=== PATIENT | male | born 1985 | race Caucasian/White ===

== ENCOUNTER 2019-10-08 13:18 | Emergency (ER) | payer OTHER, SELFPAY ==
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
[2019-10-08 13:45] VITALS: BP 144/90; PULSE 83; RESP 18; TEMP 36.2; O2SAT 98
[2019-10-08] MEDS: KETOROLAC (*BKC) 60 MG/2 ML VIAL IM (14:30)
[2019-10-08] MEDS: DIAZEPAM 5 MG TABLET PO (14:34)
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
[2019-10-08 15:34] VITALS: BP 148/80; PULSE 72; RESP 18; O2SAT 99
== END 2019-10-08 15:36 | disposition home or self-care (01) ==
PROVIDERS: Emergency Provider Emergency Medicine
DX: S09.90XA Unspecified injury of head, initial encounter (principal); S16.1XXA Strain of muscle, fascia and tendon at neck level, initial encounter; M47.812 Spondylosis without myelopathy or radiculopathy, cervical region; Y09 Assault by unspecified means
CPT/HCPCS: 70486; 72125; 96372; 99284; A9270; J1885

== ENCOUNTER 2020-11-15 11:50 | Emergency (ER) | payer OTHER, SELFPAY ==
[2020-11-15 12:08] VITALS: BP 147/101; PULSE 79; RESP 18; TEMP 37.1; O2SAT 98
--- NOTE | 2020-11-15 12:12 | ED.URI ---
HPI - URI/Sore Throat General Chief Complaint: Upper Respiratory Infection Stated Complaint: runny nose scratchy eyes congestion Time Seen by Provider: 11/15/20 12:12 Source: patient and family Mode of arrival: ambulatory History of Present Illness MD elicited complaint: rhinorrhea and nasal congestion Pertinent past history: seasonal allergies Onset (ago): week(s) Consistency: constant Severity: mild Description of mucous: clear and watery Able to tolerate fluids by mouth: Yes Exacerbating factors: nothing Related Data Allergies Allergy/AdvReac Type Severity Reaction Status Date / Time No Known Allergies Allergy Verified 10/08/19 13:51 Review of Systems Review of Systems: Narrative: CONSTITUTIONAL: Denies chills, or sweats. Reports fever and generalized body aches EYES: Denies visual changes, redness, or discharge. ENT: Denies otalgia. Reports nasal congestion runny nose and sore throat CARDIOVASCULAR: Denies chest pain, palpitations, or edema. RESPIRATORY: Denies dyspnea. Reports occasional cough GASTROINTESTINAL: Denies abdominal pain, nausea, vomiting, or diarrhea. GENITOURINARY: Denies dysuria or hematuria. SKIN: Denies rash or itching. MUSCULOSKELETAL: Denies back pain, joint pain, or myalgia. Reports generalized body aches NEUROLOGIC: Denies headache, numbness, or weakness. PSYCHIATRIC: Denies anxiety or depression. [facility] Social History Social History Gender identity (if verbalized by the patient): Male Comments At time of signature, agree with nursing past medical, surgical, social and family history. There is no relevant family history pertinent to the presenting complaint Exam Narrative: Exam Narrative: The patient is a well-developed, well-nourished in no acute distress. SKIN: Skin is warm and dry without erythema, swelling or exudate. There is good turgor. No tenting. HEAD: Atraumatic. Normocephalic. No temporal or scalp tenderness. EYES: Moist and bright. Sclera and conjunctivae normal. No discharge. PERRLA. Extraocular motions intact. Gross visual acuity intact. EARS: Pinna is normal shape and contour. Clear external auditory canals. TM pearly baxter with good cone of light, no erythema or suppuration. Bilateral cerumen noted no gross hearing deficit. NOSE: pink, moist mucosa with good air movement. Clear rhinorrhea without nasal flaring. Septum midline. Mouth: moist mucous membranes. THROAT; mild erythema noted to posterior oropharynx with moderate postnasal drainage. Without exudate or ulceration.. Uvula midline. Normal movement of soft palate. NECK: Supple and nontender with full range of motion without discomfort. No meningeal signs. LUNGS: Equal and bilateral breath sounds without wheezes, rales or rhonchi. CHEST: The chest wall is without retractions or use of accessory muscles. HEART: Has a regular rate and rhythm without murmur, gallops, click or rub. ABDOMEN: Soft, nontender with positive active bowel sounds. No rebound tenderness. EXTREMITIES: Without cyanosis, clubbing or edema. Equal 2+ distal pulses and 2 second capillary refill noted. NEUROLOGIC: alert, active, . The patient moves all extremities with normal muscle strength. Normal muscle tone is noted. Normal coordination is noted. NO focal neurological findings noted. Course Vital Signs Vital signs: Vital Signs Temperature 37.1 C 11/15/20 12:08 Pulse Rate 79 11/15/20 12:08 Respiratory Rate 18 11/15/20 12:08 Blood Pressure 147/101 H 11/15/20 12:08 Pulse Oximetry 98 11/15/20 12:08 Temperature 37.1 C 11/15/20 12:08 Pulse Rate 79 11/15/20 12:08 Respiratory Rate 18 11/15/20 12:08 Blood Pressure 147/101 H 11/15/20 12:08 Pulse Oximetry 98 11/15/20 12:08 Please RICARDO schedule a followup visit with your personal physician for further evaluation and treatment. Including recheck and discussion of your blood pressure. If your symptoms persist, change or worse
[2020-11-18 15:39] LABS: SARS-CoV-2 RNA PCR Negative
== END 2020-11-15 12:48 | disposition home or self-care (01) ==
PROVIDERS: Emergency Provider Nurse Practitioner Family
DX: J32.9 Chronic sinusitis, unspecified (principal); J06.9 Acute upper respiratory infection, unspecified; Z20.822 Contact with and (suspected) exposure to COVID-19
CPT/HCPCS: 87426; 99213; C9803; G0463; U0003; U0005

== ENCOUNTER 2022-07-01 21:09 | Inpatient (IN) | payer OTHER, SELFPAY ==
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
--- NOTE | ~2022-07-01 | XR_ITS ---
EXAMINATION: XR surgery orthopedic DATE: 07/02/2022 17:14 INDICATION: ORIF right humeral fracture TECHNIQUE: 5 fluoroscopic images of the right humerus were obtained during procedure performed by Dr. Parra. Radiologist was not present for the imaging or procedure. The amount of fluoroscopy time us ed during this procedure was 3.2 minutes. COMPARISON: Radiographs dated 07/01/2022 FINDINGS: Antegrade intramedullary joan fixation of the right humeral diaphyseal fracture which is been reduced to near anatomic alignment. There is approximately 1 cortical width residual displacement of a small triangular butterfly fragment. Interlocking screws are seen both proximally at the humeral neck and a t the distal diaphysis. Gas versus vacuum phenomena in the widened right glenohumeral joint space whi ch could be related to traction upon the arm. No new fractures identified. IMPRESSION: 1. Near-anatomic alignment post open reduction internal fixation of a mildly comminuted diaphyseal fr acture of the right humerus. . Reviewed, dictated and finalized at location A. TRUCTION SECRETARY IMPRESSION: 1. Near-anatomic alignment post open reduction internal fixation of a mildly co mminuted diaphyseal fracture of the right humerus. .
--- NOTE | ~2022-07-01 | XR_ITS ---
EXAMINATION: XR humerus RT DATE: 07/01/2022 23:28 INDICATION: Postreduction and splinting of a right humeral fracture TECHNIQUE: Internal and externally rotated views of the right humerus were obtained COMPARISON: 07/02/2022 at 9:35 PM FINDINGS: Improved alignment post reduction and splinting of the previous noted mildly comminuted proximal righ t humeral diaphyseal fracture. There is now one half shaft width posterior displacement and 15 degree medial angulation IMPRESSION: 1. Improved alignment post reduction and splinting of a mildly comminuted proximal right humeral diap hyseal fracture. Reviewed, dictated and finalized at location A. ICIAN INTERVENTIONAL CARDIOLOGIST IMPRESSION: 1. Improved alignment post reduction and splinting of a mildly comminuted proxi mal right humeral diaphyseal fracture.
--- NOTE | ~2022-07-01 | XR_ITS ---
EXAMINATION: XR hand LT min 3V DATE: 07/02/2022 17:30 INDICATION: Fracture TECHNIQUE: Posteroanterior, oblique and lateral views of the left hand were obtained. COMPARISON: None. FINDINGS: Likely old healed fracture of the fourth metacarpal diaphysis with shortening of the metacarpal align ment is otherwise normal. Tiny corticated ossicle near the tip the lateral malleolus which could repr esent either a chronic nonunited fracture fragment, degenerative loose body or most likely heterotopi c ossicle related to chronic soft tissue injury. No acute fracture. Joint spaces are normal. Diffuse soft tissue swelling about the left hand. IMPRESSION: 1. No acute osseous abnormality. Reviewed, dictated and finalized at location A. UNTS PAYABLE TECHNICIAN
--- NOTE | ~2022-07-01 | XR_ITS ---
EXAMINATION: XR shoulder RT min 2V, XR humerus RT DATE: 07/02/2022 18:59 INDICATION: Post reduction internal fixation of a right humeral diaphyseal fracture. TECHNIQUE: 1. AP and transscapular Y views of the right shoulder were obtained. 2. Internal and axillary rotated views of the right humerus were obtained. COMPARISON: None FINDINGS: Antegrade intramedullary joan fixation of the right humeral proximal diaphyseal fracture. Interlocking screws are seen both proximally at the humeral neck and at the distal diaphysis. The main proximal a nd distal findings are in essentially anatomic alignment. There is up to 1 cm displacement of a small triangular butterfly fragment along the lateral cortex. No new fractures identified. Normal joint sp modesto at the right shoulder and elbow. There is soft tissue swelling with subcutaneous edema about the proximal to mid right upper arm. Visualized portions of the right lung are clear.. IMPRESSION: 1. Near-anatomic alignment post open reduction and internal fixation of a mildly comminuted diaphysea l fracture of the right humerus. Reviewed, dictated and finalized at location A. ETARY IMPRESSION: 1. Near-anatomic alignment post open reduction and internal fixation of a mildl y comminuted diaphyseal fracture of the right humerus.
[2022-07-01 21:03] VITALS: BP 130/78; PULSE 80; RESP 13; TEMP 36.6; O2SAT 95
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
[2022-07-01] MEDS: HYDROmorphone HCL INJ (*CRX) 1 MG/ML SYR 0.5 MG IV PUSH (22:48)
[2022-07-01] MEDS: SODIUM CHLORIDE 0.9% IV 1,000 ML 999 ML (22:49)
[2022-07-01] MEDS: MIDAZOLAM HCL (*CRX) 2 MG/2 ML VIAL 1 MG IV PUSH (22:49)
--- NOTE | 2022-07-01 23:05 | ECG_ITS ---
Measurements Intervals [place] Rate: 83 P: 51 FL: 163 QRS: 39 QRSD: 88 T: 35 QT: 358 QTc: 421 Interpretive Statements SINUS RHYTHM NORMAL ECG NO PREVIOUS ECG AVAILABLE FOR COMPARISON Electronically Signed On 07-02-2022 6:52:31 SIGNALLING AND COMMUNICATIONS ENGINEER by Abdon Ordoñez D.O.
[2022-07-01 23:46] VITALS: BP 140/90; PULSE 90; RESP 13; O2SAT 97
[2022-07-01] MEDS: SODIUM CHLORIDE 0.9% IV 1,000 ML 999 ML IV CONT (23:50)
[2022-07-01 23:57] LABS: Basophils Absolute Auto 0.1 K/mm3 (0.0-0.1); Basophils Percent Auto 0.2 % (0.2-1.2); Eosinophils Percent Auto 0.1 % (0-4.4); Hematocrit 43.7 % (42.0-52.0); Hemoglobin 15.1 g/dL (14.0-18.0); Immature Granulocyte Absolute 0.11 K/mm3 (0.00-0.031); Immature Granulocyte Percent A 0.5 % (0-0.5); Lymphocytes Absolute Auto 1.31 K/mm3 (0.9-3.2); Lymphocytes Percent Auto 6.4 % (18.3-44.2); Mean Corpuscular HGB Conc 34.6 g/dl (32-36); Mean Corpuscular Hemoglobin 32.2 pg (26-34); Mean Corpuscular Volume 93.2 fl (80-100); Mean Platelet Volume 9.7 fl (7.4-10.4); Monocytes Percent Auto 4.9 % (2.6-8.5); Neutrophils Percent Auto 87.9 % (45.5-73.1); Platelet Count Result 329 k/mm3 (150-375); Red Blood Count 4.69 M/mm3 (4.6-6.20); Red Cell Distribution Width 12.4 % (11.5-14.5); White Blood Count 20.5 K/mm3 (4.5-10.0)
[2022-07-01 23:59] VITALS: PULSE 80
[2022-07-02] VITALS (11 sets, daily range): BP systolic 111–153; BP diastolic 60–94; PULSE 71–95; RESP 12–21; TEMP 35.9–37.4; O2SAT 93–98
[2022-07-02 00:10] LABS: INR 1.1; Prothrombin Time 13.4 Seconds (11.1-14.7)
[2022-07-02 00:11] LABS: Partial Thromboplastin Time 24.7 SECONDS (22.3-36.8)
[2022-07-02 00:22] LABS: Ethanol 46 mg/dL (<10); Lactic Acid Reflex 2.7 mmol/L (0.7-2.0)
[2022-07-02] MEDS: HYDROmorphone HCL INJ (*CRX) 1 MG/ML SYR 0.5 MG IV PUSH ×3 (01:09→11:09)
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
[2022-07-02] MEDS: KETOROLAC 30 MG/ML VIAL (*BKC) IV PUSH ×2 (01:31→21:06)
[2022-07-02] MEDS: LACTATED RINGERS 1,000 ML 125 ML IV CONT (01:32)
[2022-07-02 02:54] LABS: Reflex Lactic Acid Yes or No Add Lactic
[2022-07-02 03:50] LABS: Lactic Acid 0.7 mmol/L (0.7-2.0)
[2022-07-02 05:45] LABS: Alanine Aminotransferase 24 U/L (6-50); Albumin Level 4.5 g/dL (3.5-5.1); Alkaline Phosphatase 75 U/L (38-126); Anion Gap 10 mmol/L (8-16); Aspartate Amino Transferase 35 U/L (17-59); Bilirubin,Total 0.5 mg/dL (0.2-1.3); Blood Urea Nitrogen 8 mg/dL (9-20); Calcium 8.6 mg/dL (8.4-10.2); Carbon Dioxide 22 mmol/L (22-30); Chloride 105 mmol/L (98-107); Estimated CRCL calculation 128 ml/min; Estimated Glomerular Filt Rate > 60; Glucose 103 mg/dL (65-110); Magnesium 1.7 mg/dL (1.6-2.3); Potassium 3.8 mmol/L (3.4-5.0); Sodium 137 mmol/L (137-145)
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
--- NOTE | 2022-07-02 12:26 | WPDHPUPDATE1 ---
History and Physical Update Update Date/Time: 07/02/22 12:26 History and Physical has been reviewed, including an updated exam of the patient. There are NO changes in the patient's condition. Risks, benefits, and alternatives have been discussed and questions answered. Patient agrees to proceed with procedure.
[2022-07-02] MEDS: ACETAMINOPHEN 500 MG TABLET 1000 MG PO (13:39)
--- NOTE | 2022-07-02 13:41 | WPDANESEPPF ---
Anes - Initial Pre Proc Eval Procedure: Operation Date: 07/02/22 14:00 Proposed Procedures p Open Reduction Internal Fixation Right Humerus(Right) - Karthikeyan Parra MD Date/Time: 07/02/22 13:41 Surgeon: Karthikeyan Parra MD Pre Op Diagnosis: humerous fracture Patient Data Age: 37 Gender: M Height: 1.68 m Weight: 89.9 kg Last Vital Signs Temp 35.9 C L 07/02/22 06:00 Pulse 71 07/02/22 06:00 Resp 16 07/02/22 06:00 BP 131/86 07/02/22 06:00 Pulse Ox 96 07/02/22 06:00 O2 Del Method Room Air 07/02/22 08:12 Allergies Allergy/AdvReac Type Severity Reaction Status Date / Time No Known Allergies Allergy Verified 07/02/22 07:55 Home Medications Medication Instructions Recorded Confirmed Type No Home Medications 07/02/22 07/02/22 History Laboratory Tests 07/01/22 07/01/22 07/01/22 23:47 23:48 23:48 WBC 20.5 K/mm3 H K/mm3 (4.5-10.0) RBC 4.69 M/mm3 M/mm3 (4.6-6.20) Hgb 15.1 g/dL g/dL (14.0-18.0) Hct 43.7 % % (42.0-52.0) MCV 93.2 fl fl (80-100) MCH 32.2 pg pg (26-34) MCHC 34.6 g/dl g/dl (32-36) RDW 12.4 % % (11.5-14.5) Plt Count 329 k/mm3 k/mm3 (150-375) MPV 9.7 fl fl (7.4-10.4) Immature Gran % (Auto) 0.5 % % (0-0.5) Neut % (Auto) 87.9 % H % (45.5-73.1) Lymph % (Auto) 6.4 % L % (18.3-44.2) [place] % (Auto) 4.9 % % (2.6-8.5) Eos % (Auto) 0.1 % % (0-4.4) Baso % (Auto) 0.2 % % (0.2-1.2) Lymph # (Auto) 1.31 K/mm3 K/mm3 (0.9-3.2) [place] # (Auto) 1.0 K/mm3 H K/mm3 (0.1-0.6) Eos # (Auto) 0.0 K/mm3 K/mm3 (0-0.3) Baso # (Auto) 0.1 K/mm3 K/mm3 (0.0-0.1) Abs Immat Gran (auto) 0.11 K/mm3 H K/mm3 (0.00-0.031) Absolute Neuts (auto) 18.0 K/mm3 H K/mm3 (1.3-6.7) Absolute Nucleated RBC 0.0 K/mm3 K/mm3 (0.0-0.012) Nucleated RBC % 0.0 % % (0.0-0.2) PT INR APTT Sodium 137 mmol/L mmol/L (137-145) Potassium 3.8 mmol/L mmol/L (3.4-5.0) Chloride 105 mmol/L mmol/L (98-107) Carbon Dioxide 22 mmol/L mmol/L (22-30) Anion Gap 10 mmol/L mmol/L (8-16) BUN 8 mg/dL L mg/dL (9-20) Creatinine 0.70 mg/dL mg/dL (0.7-1.3) Estim Creat Clear Calc 128 ml/min ml/min Estimated GFR > 60 (59 - ) Glucose 103 mg/dL mg/dL (65-110) Lactic Acid Calcium 8.6 mg/dL mg/dL (8.4-10.2) Magnesium 1.7 mg/dL mg/dL (1.6-2.3) Total Bilirubin 0.5 mg/dL mg/dL (0.2-1.3) AST 35 U/L U/L (17-59) ALT 24 U/L U/L (6-50) Alkaline Phosphatase 75 U/L U/L (38-126) Total Protein 8.0 g/dL g/dL (6.3-8.2) Albumin 4.5 g/dL g/dL (3.5-5.1) Ethyl Alcohol Blood Type O Positive Antibody Screen Negative 07/01/22 07/01/22 07/01/22 23:48 23:48 23:49 WBC RBC Hgb Hct MCV MCH MCHC RDW Plt Count MPV Immature Gran % (Auto) Neut % (Auto) Lymph % (Auto) [place] % (Auto) Eos % (Auto) Baso % (Auto) Lymph # (Auto) [place] # (Auto) Eos # (Auto) Baso # (Auto) Abs Immat Gran (auto) Absolute Neuts (auto) Absolute Nucleated RBC Nucleated RBC % PT 13.4 Seconds Seconds (11.1-14.7) INR 1.1 APTT 24.7 SECONDS SECONDS (22.3-36.8) Sodium Potassium Chloride Carbon Dioxide Anion Gap BUN Creatinine Es
[2022-07-02] MEDS: HYDROmorphone HCL INJ (*CRX) 1 MG/ML SYR 2 MG IV PUSH (13:47)
[2022-07-02] MEDS: LACTATED RINGERS 1,000 ML 30 ML IV CONT (14:00)
--- NOTE | 2022-07-02 14:01 | PC.NURSE ---
Pt is A&O4 male who is going for surgery today. Pt will have ORIF today to R humerus. Pt has been anxious about the procedure. The procedure was explained by Dr. Parra and pt stated that it answered a lot of questions. Pt has a visitor at bedside. Pts visitor will accompany him to preop. Pt participated and contributed in plan of care. Pt reports having pain, dilaudid was given. Pt has no other complaints and expresses no needs at this time. Will continue to monitor pt.
--- NOTE | 2022-07-02 14:09 | PCCCNOTE ---
On 07/02/22, the student, [Lucila Silver], provided care and completed [facility] documentation on this patient. I have reviewed the student's documentation and agree with the findings.
[2022-07-02] MEDS: ceFAZolin 2 GM/D5W 50 ML 2 GM/50 ML BAG IVPB (14:19)
[2022-07-02] MEDS: BUPIVACAINE/EPINEPHRINE 0.25% 50 ML VIAL INFILTRATE (14:57)
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
[2022-07-02] MEDS: HYDROmorphone HCL INJ (*CRX) 1 MG/ML SYR IV PUSH (17:39)
[2022-07-02] MEDS: ceFAZolin 1 GM/NS 50 ML 1 GM/50 ML BAG IVPB (20:49)
[2022-07-02] MEDS: KCL 20 MEQ/D5/0.45% SOD CHL 1,000 ML 80 ML IV CONT (20:49)
[2022-07-02] MEDS: ASPIRIN 325 MG ENTERIC TABLET PO (20:50)
[2022-07-02] MEDS: ONDANSETRON INJ 4 MG/2 ML VIAL IV PUSH (21:07)
[2022-07-02] MEDS: diazePAM (*CRX) 5 MG TABLET PO (21:07)
[2022-07-03] MEDS: PROMETHAZINE HCL 25 MG/ML AMPUL 12.5 MG IV PUSH (00:26)
[2022-07-03] MEDS: MORPHINE SULFATE (*CRX) 4 MG/ML INJ 3 MG IV PUSH (00:26)
[2022-07-03 03:34] VITALS: BP 170/81; PULSE 52; RESP 16; TEMP 36.6; O2SAT 99
[2022-07-03] MEDS: ceFAZolin 1 GM/NS 50 ML 1 GM/50 ML BAG IVPB ×2 (05:43→11:15)
[2022-07-03] MEDS: oxyCODONE HCL (*CRX) 5 MG TAB IR PO ×3 (06:06→19:50)
[2022-07-03 06:29] LABS: Basophils Percent Auto 0.1 % (0.2-1.2); Eosinophils Percent Auto 0.1 % (0-4.4); Hematocrit 37.9 % (42.0-52.0); Immature Granulocyte Absolute 0.05 K/mm3 (0.00-0.031); Immature Granulocyte Percent A 0.3 % (0-0.5); Lymphocytes Absolute Auto 1.51 K/mm3 (0.9-3.2); Mean Corpuscular HGB Conc 34.3 g/dl (32-36); Mean Corpuscular Volume 96.2 fl (80-100); Mean Platelet Volume 9.8 fl (7.4-10.4); Monocytes Absolute Auto 1.1 K/mm3 (0.1-0.6); Monocytes Percent Auto 7.2 % (2.6-8.5); Neutrophils Absolute Auto 12.4 K/mm3 (1.3-6.7); Neutrophils Percent Auto 82.3 % (45.5-73.1); Platelet Count Result 253 k/mm3 (150-375); Red Blood Count 3.94 M/mm3 (4.6-6.20); Red Cell Distribution Width 12.2 % (11.5-14.5); White Blood Count 15.1 K/mm3 (4.5-10.0)
[2022-07-03 06:49] LABS: Anion Gap 7 mmol/L (8-16); Blood Urea Nitrogen 21 mg/dL (9-20); Calcium 8.3 mg/dL (8.4-10.2); Carbon Dioxide 25 mmol/L (22-30); Chloride 105 mmol/L (98-107); Estimated CRCL calculation 102 ml/min; Estimated Glomerular Filt Rate > 60; Glucose 136 mg/dL (65-110); Potassium 4.1 mmol/L (3.4-5.0); Sodium 137 mmol/L (137-145)
[2022-07-03 08:30] VITALS: BP 152/93; PULSE 87; RESP 16; TEMP 36.9; O2SAT 97
[2022-07-03] MEDS: ASPIRIN 325 MG ENTERIC TABLET PO ×2 (08:42→20:04)
--- NOTE | 2022-07-03 11:43 | PM.PNORT ---
Progress Note: A&P Assessment and Plan (1) Fracture, humerus: Qualifiers: Encounter type: initial encounter Fracture alignment: displaced Fracture morphology: comminuted Fracture type: closed Humerus Location: shaft Laterality: right Qualified Code(s): S42.351A - Displaced comminuted fracture of shaft of humerus, right arm, initial encounter for closed fracture Code(s): S42.309A - Unspecified fracture of shaft of humerus, unspecified arm, initial encounter for closed fracture Status: Acute Assessment and Plan: POD 1 HUMERAL SHAFT IM FIXATION DOING WELL. CONT CURRENT REGIMEN. ANTICIPATE DC TMRW Subjective Subjective Date/Time Seen: 07/03/22 11:43 POD 1 DOING WELL. PAIN CONTROLLED. Exam Extrem: Other: VSS AFEBRILE DRESSINGS DRY NV INTACT, BICEPS SOFT Objective Data Vital Signs Vital Signs: Vital Signs - 24 hr 07/02/22 13:30 07/02/22 16:47 07/02/22 17:00 Temperature 36.8 C 37.4 C Pulse Rate 74 82 82 Respiratory Rate 18 18 12 Blood Pressure 153/83 H 129/60 143/60 H Pulse Oximetry 94 98 96 Oxygen Delivery Room Air Simple Face Mask Simple Face Mask Oxygen Flow Rate 6 6 07/02/22 17:15 07/02/22 17:30 07/02/22 17:45 Temperature Pulse Rate 95 82 82 Respiratory Rate 12 13 18 Blood Pressure 139/94 H 138/79 135/71 Pulse Oximetry 96 97 96 Oxygen Delivery Room Air Room Air Room Air Oxygen Flow Rate 07/02/22 19:34 07/02/22 23:34 07/03/22 03:34 Temperature 36.2 C L 36.4 C 36.6 C Pulse Rate 78 80 52 L Respiratory Rate 18 18 16 Blood Pressure 132/76 146/89 H 170/81 H Pulse Oximetry 95 97 99 Oxygen Delivery Oxygen Flow Rate 07/03/22 08:30 Temperature 36.9 C Pulse Rate 87 Respiratory Rate 16 Blood Pressure 152/93 H Pulse Oximetry 97 Oxygen Delivery Oxygen Flow Rate Intake/Output Intake/Output: Intake & Output 06/30/22 07/01/22 07/02/22 07/03/22 23:59 23:59 23:59 23:59 Intake Total 1000 700 690 Output Total 700 300 Balance 1000 0 390 Meds/Results Medications: Active Medications Generic Name Dose Route Start Last Admin Trade Name Freq PRN Reason Stop Dose Admin Acetaminophen 650 mg 07/02/22 17:49 Acetaminophen 325 Mg Tablet PO Q6H PRN Pain Rated 1-3 Aspirin 325 mg 07/02/22 21:00 07/03/22 08:42 Aspirin 325 Mg Enteric Tablet PO 325 mg Q12HR OSIRIS Administration Diazepam 5 mg 07/02/22 17:49 07/02/22 21:07 Diazepam (*Crx) 5 Mg Tablet PO 5 mg Q8H PRN Administration Muscle Spasm Dicyclomine HCl 20 mg 07/01/22 23:07 Dicyclomine Hcl Inj 20 Mg/2 Ml Vial IM Q6H PRN Abdominal Cramping Cefazolin Sodium 1 gm in 50 mls @ 100 mls/hr 07/02/22 20:00 07/03/22 11:15 Ancef 1 Gm/Ns 50 Ml IVPB 07/03/22 12:29 100 mls/hr Q8H OSIRIS Administration Ketorolac Tromethamine 30 mg 07/01/22 23:07 07/02/22 21:06 Ketorolac 30 Mg/Ml Vial (*Bkc) IV PUSH 07/06/22 23:06 30 mg Q6H PRN Administration Pain Rated 4-6 Morphine Sulfate 3 mg 07/02/22 17:49 07/03/22 00:26 Morphine Sulfate (*Crx) 4 Mg/Ml Inj IV PUSH 3 mg Q3H PRN Administration Pain Rated 7-10 Ondansetron HCl 4 mg 07/01/22 23:07 07/02/22 21:07 Ondansetron Inj 4 Mg/2 Ml Vial IV PUSH 4 mg Q4H PRN Administration Nausea Oxycodone HCl 5 mg 07/02/22 17:49 07/03/22 10:05 Oxycodone Hcl (*Crx) 5 Mg Tab Ir PO 5 mg Q4H PRN Administration Pain Rated 4-6 Pantoprazole Sodium 40 mg 07/01/22 23:07 Pantoprazole Sodium Iv 40 Mg Vial IV PUSH QAM PRN GERD Polyethylene Glycol 17 gm 07/03/22 09:00 07/03/22 08:43 Polyethylene Glycol 3350 17 Gm Powd.Pack PO Not Given QAM OSIRIS Promethazine HCl 12.5 mg 07/01/22 23:07 07/03/22 00:26 Promethazine Hcl 25 Mg/Ml Ampul IV PUSH 12.5 mg Q6H PRN Administration Nausea Senna/Docusate Sodium 2 tab 07/02/22 17:49 07/03/22 08:43 Senna/Docusate Sodium Tablet PO Not Given BID OSIRIS Radiology Results:
[2022-07-03 12:00] VITALS: BP 161/78; PULSE 63; RESP 16; TEMP 36.7; O2SAT 98
[2022-07-03] MEDS: KETOROLAC 30 MG/ML VIAL (*BKC) IV PUSH ×2 (12:39→21:20)
[2022-07-03] MEDS: NICOTINE (*PBKC) 14 MG PATCH 1 PATCH TRANSDERM (14:06)
[2022-07-03 15:34] VITALS: BP 156/82; PULSE 65; RESP 16; TEMP 36.6; O2SAT 95
[2022-07-03] MEDS: SENNA/DOCUSATE SODIUM TABLET 2 TAB PO (17:21)
[2022-07-03 20:00] VITALS: BP 150/86; PULSE 58; RESP 20; TEMP 36.4; O2SAT 96
--- NOTE | 2022-07-04 03:05 | PC.NURSE ---
Daylight Savings Time For Daylight Savings Time Ending in the Fall - Clocks are moved back. For Daylight Savings Time Beginning in the Spring - Clocks are moved ahead. For [facility], the time of change occurs at 0200 hrs. Time is taken from the bartender server. This entry on the patient's chart recognizes the change in time reflected during documentation. Example: 2 entries for vital signs may be charted for 0200 hrs.
[2022-07-04 04:00] VITALS: BP 140/83; PULSE 62; RESP 20; TEMP 36.8; O2SAT 96
[2022-07-04] MEDS: KETOROLAC 30 MG/ML VIAL (*BKC) IV PUSH (06:03)
[2022-07-04 08:00] VITALS: BP 150/88; PULSE 53; RESP 18; TEMP 36.2; O2SAT 96
[2022-07-04] MEDS: NICOTINE (*PBKC) 14 MG PATCH 1 PATCH TRANSDERM (08:32)
[2022-07-04] MEDS: ASPIRIN 325 MG ENTERIC TABLET PO (08:32)
[2022-07-04] MEDS: polyethylene glycoL 3350 17 GM POWD.PACK PO (08:33)
[2022-07-04] MEDS: SENNA/DOCUSATE SODIUM TABLET 2 TAB PO (08:33)
[2022-07-04 12:00] VITALS: BP 163/91; PULSE 65; RESP 20; TEMP 36.6; O2SAT 95
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
[2022-07-04] MEDS: ACETAMINOPHEN 325 MG TABLET 650 MG PO (15:37)
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
== END 2022-07-04 16:15 | disposition home or self-care (01) | DRG 315 ==
LOC: ANHED 23:12 → ANH3MEDSUR 07-02 00:12
PROVIDERS: Admitting Provider Orthopaedic Surgery; Emergency Provider Emergency Medicine; Visit Provider Orthopaedic Surgery
PROC: 0PSF06Z Reposition Right Humeral Shaft with Intramedullary Internal Fixation Device, Open Approach (ICD-10-PCS; principal; 2022-07-02 14:00)
DX: S42.351A Displaced comminuted fracture of shaft of humerus, right arm, initial encounter for closed fracture (principal); F17.210 Nicotine dependence, cigarettes, uncomplicated; S00.91XA Abrasion of unspecified part of head, initial encounter; M25.442 Effusion, left hand; V09.9XXA Pedestrian injured in unspecified transport accident, initial encounter
CPT/HCPCS: 24505; 36415; 71045; 73020; 73030; 73060; 73130; 80048; 80053; 80307; 83605; 83735; 85025; 85610; 85730; 86850; 86900; 86901; 93005; 96361; 96374; 96375; 97161; 99199; 99285; A4565; A9270; J0330; J0690; J1100; J1170; J1885; J2250; J2270; J2405; J2550; J2704; J3010; J3480; J7030; J7120